=== PATIENT | male | born 1995 | race Two or more races ===

== ENCOUNTER 2017-09-17 15:24 | Emergency (ER) | payer MEDICAID, OTHER ==
[~2017-09-17] VITALS: Ht 243.8 cm; Wt 122.5 kg
[2017-09-17 15:35] VITALS: BP 147/85
[2017-09-17] MEDS ORDERED: HYDROcodone-ACET 10/325MG TAB PO ONE (17:00)
== END 2017-09-17 18:39 | disposition home or self-care (01) ==
LOC: ER 15:24
DX: S82.402A Unspecified fracture of shaft of left fibula, initial encounter for closed fracture (principal); W00.0XXA Fall on same level due to ice and snow, initial encounter; Y93.21 Activity, ice skating; Y92.89 Other specified places as the place of occurrence of the external cause; Y99.8 Other external cause status
CPT/HCPCS: 29515; 73590